=== PATIENT | male | born 1995 | race Caucasian/White ===

== ENCOUNTER → 2020-12-06 | Outpatient (CLI) | payer SELFPAY | LOC: M LABSMTC 09:50 | PROVIDERS: ATTEND Pediatrics | DX: Z11.52 Encounter for screening for COVID-19 (principal) ==

== ENCOUNTER 2023-08-02 09:22 | Emergency (ER) | payer BC, OTHER ==
[~2023-08-02] VITALS: Ht 170.2 cm; Wt 79.4 kg
[2023-08-02] MEDS ORDERED: FLUORESCEIN OPHTH 1MG STRIP OU ONE (11:00)
[2023-08-02] MEDS ORDERED: TETRACAINE 0.5% OPHTH SOLN 4ML OU ONE (11:00)
[2023-08-02 11:47] VITALS: BP 133/84; TEMP 97.8; O2SAT 99
== END 2023-08-02 11:49 | disposition home or self-care (01) ==
LOC: M ED 09:22
DX: S05.01XA Injury of conjunctiva and corneal abrasion without foreign body, right eye, initial encounter (principal); Y92.9 Unspecified place or not applicable; Y93.9 Activity, unspecified; Y99.8 Other external cause status; X58.XXXA Exposure to other specified factors, initial encounter

== ENCOUNTER → 2024-06-28 | Outpatient (REF) | payer OTHER ==
[2024-06-28 11:28] LABS: SEMEN APPEARANCE OPAQUE (OPAQUE); SEMEN VISCOSITY LIQUID (LIQUID); SEMEN VOLUME 1.3 ml (2.0-5.0); SEMEN pH 8.5 (7.0-8.0)
[2024-06-28 11:29] LABS: SPERM CONCENTRATION 81.2 M/ml (>=15.0); WBC CONCENTRATION <=1 M/ml (<=1 M/ml)
== END ==
LOC: M LAB REF 11:22
PROVIDERS: ATTEND Specialist
DX: Z30.8 Encounter for other contraceptive management (principal)